=== PATIENT | female | born 1975 | race Caucasian/White ===

== ENCOUNTER → 2018-11-21 | Outpatient (CLI) | payer OTHER ==
[2015-10-15 13:06] VITALS: BP 129/74
[~2018-11-21] MED LIST: HYDR-3165 PO; OXYC1TAB15 PO
--- NOTE | 2018-11-21 17:24 | KCIC ---
PELVIS COMPLETE History: Pelvic pain, history of ovarian cyst Comparison: None available Findings: Multiple transabdominal sonographic images of pelvis are submitted. Uterus measured 9.7 x 5.5 x 4.8 cm. Endometrium measured up to about 1.6 cm in greatest thickness. Right ovary measured 2.3 x 2 x 1.7 cm. Left ovary measured 2.8 x 2.6 x 2.1 cm. There is normal low resistance vascularity of the bilateral ovaries. No free fluid is demonstrated. There is a hypoechoic lesion of the left ovary about 1.5 x 1.7 x 0.9 cm. Impression: 1. There is a dominant follicle/small cyst of the left ovary, no free fluid. 2. Endometrial thickness potentially can be within normal limits in premenopausal patient such as during the secretory phase. Electronically signed by: Augustine Ahmadi MD (11/21/2018 5:21 PM) [id number]
--- NOTE | 2018-11-22 09:55 | KCIC ---
BILATERAL SCREENING MAMMOGRAM, 3-D History: Routine screening. History of bilateral breast reduction 2006. Comparison: None. This is a baseline examination. Technique: MLO and CC digital tomosynthesis (3D) images obtained. Radiologist reviewed these images on dedicated workstation. Findings: Breast Tissue Density D :The breasts are extremely dense, which lowers the sensitivity of mammography. There are no dominant masses, suspicious microcalcifications, or architectural distortion. IMPRESSION: No mammographic evidence of malignancy. Recommend routine screening. BI-RADS category 1: Negative. The images were reviewed with computer-aided detection. Patient information is entered into reminder system with a target due date for the next screening mammogram. Mammography is the most sensitive method for finding small breast cancers, but it does not detect them all and is not a substitute for careful clinical examination. A negative mammogram does not negate a clinically suspicious finding and should not result in delay in biopsying a clinically suspicious abnormality. "Our facility is accredited by the [employer] Mammography Program." Electronically signed by: Drew Ballesteros MD (11/22/2018 9:52 AM) [id number]
== END | disposition home or self-care (01) ==
LOC: KCIC US 10:48
PROVIDERS: ATTEND Obstetrics & Gynecology
DX: Z12.31 Encounter for screening mammogram for malignant neoplasm of breast (principal); N83.202 Unspecified ovarian cyst, left side
CPT/HCPCS: 76856; 77063; 77067

== ENCOUNTER → 2019-02-13 | Outpatient (CLI) | payer OTHER ==
[2015-10-15 13:06] VITALS: BP 129/74
[2019-02-13 12:13] LABS: BASO % 1 % (0-3); EOS # 0.2 x10^3/uL (0.0-0.7); EOS % 5 % (0-3); HEMATOCRIT 42.7 % (36.0-47.0); HEMOGLOBIN 14.2 g/dL (12.0-15.5); LYMPH # 1.7 x10^3/uL (1.0-4.8); LYMPH % 39 % (24-48); MEAN CORPUSCULAR HEMOGLOBIN 28 pg (25-35); MEAN CORPUSCULAR HGB CONC 33 g/dL (31-37); MEAN CORPUSCULAR VOLUME 85 fL (79-100); MONO # 0.3 x10^3/uL (0.0-1.1); MONO % 6 % (0-9); NEUT # 2.2 x10^3/uL (1.8-7.7); NEUT % 49 % (31-73); PLATELET COUNT 201 x10^3/uL (140-400); RED BLOOD COUNT 5.03 x10^6/uL (3.50-5.40); RED CELL DISTRIBUTION WIDTH 13.9 % (11.5-14.5); WHITE BLOOD COUNT 4.5 x10^3/uL (4.0-11.0)
[2019-02-13 12:35] LABS: ALBUMIN/GLOBULIN RATIO 1.2 (1.0-1.7); CALCIUM 9.9 mg/dL (8.5-10.1); CREATININE 0.6 mg/dL (0.6-1.0); GFR 109.6; POTASSIUM 4.2 mmol/L (3.5-5.1); TOTAL BILIRUBIN 0.6 mg/dL (0.2-1.0); TOTAL PROTEIN 7.4 g/dL (6.4-8.2)
[2019-02-13 12:39] LABS: CHOLESTEROL/HDL RATIO 3.3
[2019-02-13 12:48] LABS: FREE T4 0.88 ng/dL (0.76-1.46); THYROID STIM HORMONE (TSH) 1.499 uIU/mL (0.358-3.74)
[2019-02-14 00:07] LABS: HEMOGLOBIN A1C 5.1 % (4.8-5.6)
== END | disposition home or self-care (01) ==
LOC: LAB 11:49
PROVIDERS: ATTEND Family Medicine
DX: Z00.00 Encounter for general adult medical examination without abnormal findings (principal); R00.2 Palpitations
CPT/HCPCS: 36415; 80053; 80061; 83036; 84439; 84443; 84480; 85025

== ENCOUNTER → 2019-07-17 | Outpatient (CLI) | payer OTHER ==
[2015-10-15 13:06] VITALS: BP 129/74
--- NOTE | 2019-07-17 14:27 | RAD ---
Pelvic ultrasound to include transabdominal and transvaginal imaging 07/17/2019 CLINICAL HISTORY: Pelvic pain. TECHNIQUE: Using the distended urinary bladder as a sonographic window, a real-time ultrasound examination of the pelvis was performed. Additionally in an attempt to better evaluate the uterus and adnexa, a transvaginal ultrasound study was performed. Multiple images were obtained. FINDINGS: Comparison study is dated 11/21/2018. The uterus is within normal limits in size. It measures 10.8 x 6.7 x 4.8 cm in longitudinal, transverse, and AP dimensions. An oval-shaped echogenic polyp is seen within the endometrial canal within the body/fundus of the uterus. This measures 1.6 cm in size. The endometrial echo complex is otherwise within normal limits and measures 6 mm in thickness. No additional abnormality of the uterus is seen. Both ovaries are within normal limits in size. The right ovary measures 3.6 x 3.0 x 2.4 cm in size. The left ovary measures 3.7 x 3.2 x 1.9 cm in size. A complex follicle is seen involving the right ovary which measures 1.6 cm in size. A 2.5 cm oval-shaped anechoic structure is seen within the left ovary consistent with a simple cyst. Normal color-flow and pulse Doppler imaging to both ovaries is noted. No free fluid is seen. IMPRESSION: 1. 1.6 cm polyp is seen within the endometrial canal near the uterine fundus. 2. 2.5 cm simple cyst is seen involving the left ovary. Electronically signed by: Nico Mendoza MD (07/17/2019 2:15 PM) [id number]
== END | disposition home or self-care (01) ==
LOC: US 10:47
PROVIDERS: ATTEND Obstetrics & Gynecology
DX: N84.0 Polyp of corpus uteri (principal); N83.202 Unspecified ovarian cyst, left side
CPT/HCPCS: 76830; 76856

== ENCOUNTER → 2019-07-20 | Outpatient (CLI) | payer OTHER ==
[2015-10-15 13:06] VITALS: BP 129/74
== END | disposition home or self-care (01) ==
LOC: LAB 11:24
PROVIDERS: ATTEND Obstetrics & Gynecology
DX: Z01.818 Encounter for other preprocedural examination (principal); U07.1 COVID-19; N84.0 Polyp of corpus uteri
CPT/HCPCS: C9803-CS; U0003-CS

== ENCOUNTER → 2019-08-24 | Outpatient (CLI) | payer OTHER ==
[2015-10-15 13:06] VITALS: BP 129/74
== END | disposition home or self-care (01) ==
LOC: LAB 09:27
PROVIDERS: ATTEND Obstetrics & Gynecology
DX: Z01.818 Encounter for other preprocedural examination (principal); Z11.59 Encounter for screening for other viral diseases; N84.0 Polyp of corpus uteri
CPT/HCPCS: U0003-CS

== ENCOUNTER → 2019-08-28 | Day surgery (SDC) | payer OTHER ==
[~2019-08-28] MED LIST changes: +DEXAMETHASONE SOD PHOS 4 MG/ML VIAL ONE; +FAMOTIDINE 20 MG/2 ML VIAL ONE; +HYDROmorphone 2 MG/ML VIAL IV PRN; +IBUP-1060 PO; +IBUPROFEN 400 MG TABLET. PO ONE; +IV RINGERS,LACTATED 1000ML 1,000 ML IV SCH; +KETOROLAC 30 MG/ML VIAL. ONE; +LIDOCAINE 1% PF 2 ML VIAL. ID PRN; +LIDOCAINE 2% PF 5 ML VIAL. ONE; +MIDAZOLAM HCL/PF 2 MG/2 ML VIAL. ONE; +MORPHINE SULFATE 2 MG/ML VIAL. IV PRN; +ONDANSETRON PF 4 MG/2 ML VIAL. IV PRN; +ONDANSETRON PF 4 MG/2 ML VIAL. ONE; +PROCHLORPERAZINE 10 MG/2 ML VIAL. IV PRN; +PROPOFOL 10 MG/ML (20ML) VIAL. IV ONE; +SEVOFLURANE 31 TO 60 MINUTES. IH ONE; +fentaNYL PF VIAL 100 MCG/2 ML VIAL IV PRN; +fentaNYL PF VIAL 100 MCG/2 ML VIAL ONE
--- NOTE | 2019-08-28 09:12 | PDOC4 ---
OPERATIVE NOTE: PreOp Dx: 1.) Abd discomfort, 2.) Dysmenorrhea - as above, 3.) Possible polyps PostOp Dx: same Procedure: H/S, Myosure, D&C Surgeon: Yelitza Braden Anesthesia: GETA EBL: 100cc Findings: endometrial polyp Complications: none: Path: Myosure specimen (polyp) MARCY BRADEN MD Aug 28, 2019 09:12
[2019-08-28 09:15] VITALS: BP 113/68
--- NOTE | 2019-08-28 09:29 | OP ---
DATE OF SURGERY: PREOPERATIVE DIAGNOSES: 1. Abdominal discomfort. 2. Dysmenorrhea. 3. Possible polyp. POSTOPERATIVE DIAGNOSES: 1. Abdominal discomfort. 2. Dysmenorrhea. 3. Endometrial polyp. PROCEDURE: Hysteroscopy, MyoSure. SURGEON: Marcy Braden MD. ANESTHESIA: LMA. ESTIMATED BLOOD LOSS: 100 mL. FINDINGS: Endometrial polyp. COMPLICATIONS: None. PATHOLOGY MyoSure specimen, which is the polyp. DESCRIPTION OF PROCEDURE: The patient was taken to the operating room where LMA was placed without difficulty. The patient was prepped and draped in normal sterile fashion. Speculum was placed in the patient's vagina to visualize the cervix. The anterior lip of the cervix was then grabbed with a single tooth tenaculum. A sound was attempted to be passed into the cervical os, but it was too stenotic. At that point, the cervix was serially dilated to allow for the sound to be placed. At that point, the uterus measured approximately 8 cm. At that point, the cervix was serially dilated to allow for the hysteroscope. Once the hysteroscope was placed, visualization of the endometrium revealed a good sized polyp near the fundus along the posterior wall of the uterus. At that point, the MyoSure device was then placed in the hysteroscope and the mass was removed. This was sent to pathology. Once the uterine cavity was restored to normal, the instruments were removed as well as the tenaculum. Minimal bleeding was seen at the tenaculum site. Good hemostasis was noted. The patient tolerated the procedure well and was taken to the recovery room in stable condition. MARCY BRADEN MD DR: RODNEY/ion JOB#: [id number] / [id number]
--- NOTE | 2019-08-29 17:07 | PATHOLOGY ---
[facility] Accession Number: [id number] . 01 Material submitted: . uterus - UTERINE POLYP . 01 Clinical history: . Abdominal/pelvic pain, dysmenorrhea . 02 Diagnosis: Uterine curettings: - Endometrial polyp. - Proliferative endometrium. (JPM:shayla; 08/29/2019) S 08/29/2019 1338 Local . 02 Comment: Sections of the uterine curettings reveal multiple segments of endometrial polyp, in addition to several segments of proliferative endometrium. There is no atypia or evidence of malignancy. (JPM:shayla; 08/29/2019) . 02 Electronically signed: . Gerson Wade MD, Pathologist NPI- [id number] . 01 Gross description: . The specimen is received in formalin, labeled "Luis Antonio Guerrero". The site is verified on the problem specimen form as, "uterine polyp". Received are multiple segments of pale alba tissue measuring 2.8 x 1.8 x 0.4 cm in aggregate dimensions. The specimen is filtered and entirely submitted in cassette A1. ([facility]; 08/28/2019) QA/QA 08/28/2019 1642 Local . 02 Pathologist provided ICD-10: N84.0 . 02 CPT . 007784 Specimen Comment: A courtesy copy of this report has been sent to [phone], [phone] Specimen Comment: [id number] Specimen Comment: Report sent to / DR CRUZ Performed at: 01 [facility] [address], [place], [place] [id number] MD James Mehta MD Phone: [phone] Performed at: 02 [facility] [address] [place], [place] [id number] MD Gerson Wade MD Phone: [phone]
== END ==
LOC: SURG 06:26
PROVIDERS: ATTEND Obstetrics & Gynecology
DX: N84.0 Polyp of corpus uteri (principal); N95.0 Postmenopausal bleeding; Z72.89 Other problems related to lifestyle
CPT/HCPCS: 58558; 81025; A7015; J1100; J1885; J2250; J2405; J2704; J3010; J3490; J7030

== ENCOUNTER → 2019-11-13 | Outpatient (CLI) | payer OTHER ==
[2019-08-28 09:15] VITALS: BP 113/68
[~2019-11-13] MED LIST changes: -DEXAMETHASONE SOD PHOS 4 MG/ML VIAL ONE; -FAMOTIDINE 20 MG/2 ML VIAL ONE; -HYDROmorphone 2 MG/ML VIAL IV PRN; -IBUPROFEN 400 MG TABLET. PO ONE; -IV RINGERS,LACTATED 1000ML 1,000 ML IV SCH; -KETOROLAC 30 MG/ML VIAL. ONE; -LIDOCAINE 1% PF 2 ML VIAL. ID PRN; -LIDOCAINE 2% PF 5 ML VIAL. ONE; -MIDAZOLAM HCL/PF 2 MG/2 ML VIAL. ONE; -MORPHINE SULFATE 2 MG/ML VIAL. IV PRN; -ONDANSETRON PF 4 MG/2 ML VIAL. IV PRN; -ONDANSETRON PF 4 MG/2 ML VIAL. ONE; -PROCHLORPERAZINE 10 MG/2 ML VIAL. IV PRN; -PROPOFOL 10 MG/ML (20ML) VIAL. IV ONE; -SEVOFLURANE 31 TO 60 MINUTES. IH ONE; -fentaNYL PF VIAL 100 MCG/2 ML VIAL IV PRN; -fentaNYL PF VIAL 100 MCG/2 ML VIAL ONE
--- NOTE | 2019-11-13 18:33 | RAD ---
EXAMINATION: Bilateral screening mammogram, 11/13/2019 9:30 AM CLINICAL INDICATION: 44-year-old woman presenting for screening mammogram. COMPARISON: Screening mammogram 11/21/2018 TECHNIQUE: Digital bilateral full-field CC and MLO views, and CC and MLO tomosynthesis views of the breasts were obtained. CAD was utilized. FINDINGS: The breasts are extremely dense, which lowers the sensitivity of mammography. There is no mass, suspicious calcification, or architectural distortion. IMPRESSION: 1. No mammographic evidence of malignancy. 2. BI-RADS 1: Negative. 3. Routine annual screening mammogram is recommended in 1 year. The patient will receive a reminder letter by mail when she is due for her next exam. Electronically signed by: Radha Dubon MD (11/13/2019 6:30 PM) [id number]
== END | disposition home or self-care (01) ==
LOC: MAMMO 09:04
PROVIDERS: ATTEND Obstetrics & Gynecology
DX: Z12.31 Encounter for screening mammogram for malignant neoplasm of breast (principal); Z98.86 Personal history of breast implant removal
CPT/HCPCS: 77063; 77067

== ENCOUNTER → 2021-04-21 | Outpatient (CLI) | payer OTHER ==
[2019-08-28 09:15] VITALS: BP 113/68
--- NOTE | 2021-04-21 10:32 | RAD ---
PROCEDURE: MG BILAT SCREEN+KADEEM HISTORY: The patient is 45 years old and is seen for Reason: SCREENING / Spl. Instructions: / Histor y: . COMPARISON: November 13, 2019 and November 21, 2018 TECHNIQUE: CC and MLO views of both breasts were obtained. Images were processed by the [employer] computer-aided detection system. DENSITY: The breast parenchyma is extremely dense, which could obscure a lesion on mammography. FINDINGS: No developing mass, suspicious calcifications or architectural distortion. IMPRESSION: Negative. No evidence of malignancy. Recommend annual screening mammograms per [employer] [place] [employer] guidelines. She will be due in one year. BI-RADS category 1 Negative Patient entered into a reminder system for annual screening mammogram. Electronically signed by: Javier Jones DO (04/21/2021 10:29 AM) [id number]
== END ==
LOC: MAMMO 09:02
PROVIDERS: ATTEND Family Medicine
DX: Z12.31 Encounter for screening mammogram for malignant neoplasm of breast (principal)
CPT/HCPCS: 77063; 77067